=== PATIENT | male | born 1975 | race Caucasian/White ===

== ENCOUNTER → 2018-10-04 | Outpatient (CLI) | payer MEDICARE, OTHER ==
[2018-10-04 10:01] LABS: Basophils % (A) 1 %; Eosinophils # (A) 0.1 k/uL (0-0.7); Eosinophils % (A) 2 %; HCT 48.1 % (39.0-53.0); Lymphocytes # (A) 1.5 k/uL (1.0-4.8); Lymphocytes % (A) 26 %; MCH 29.9 pg (25.0-35.0); MCHC 33.2 g/dL (31.0-37.0); Monocytes # (A) 0.3 k/uL (0-1.0); Monocytes % (A) 6 %; Neutrophils # (A) 3.6 k/uL (1.3-7.7); Neutrophils % (A) 64 %; Platelet Count 277 k/uL (150-450); RBC 5.35 m/uL (4.30-5.90); RDW 14.5 % (11.5-15.5); WBC 5.7 k/uL (3.8-10.6)
[2018-10-04 17:34] LABS: Albumin 4.5 g/dL (3.80-4.90); Albumin/Globulin Ratio 1.96 (1.60-3.17); Anion Gap 7.3 mmol/L (4.00-12.00); Calcium 9.2 mg/dL (8.7-10.3); Carbon Dioxide 26.7 mmol/L (21.6-31.8); Globulin 2.3 g/dL (1.6-3.3); LDL Cholesterol,Calculated 118.4 mg/dL (0.0-131.0); Potassium 4.5 mmol/L (3.5-5.5); Total Bilirubin 0.7 mg/dL (0.3-1.2); Total Protein 6.8 g/dL (6.2-8.2); VLDL Calculation 21.6 mg/dL (5.00-40.00)
== END | disposition home or self-care (01) ==
LOC: LABWHC1 08:37 → EEVIPCON 08:37
PROVIDERS: ATTEND Internal Medicine
DX: E55.9 Vitamin D deficiency, unspecified (principal); F41.1 Generalized anxiety disorder; Z13.6 Encounter for screening for cardiovascular disorders
CPT/HCPCS: 36415; 80053; 80061; 84443; 85025

== ENCOUNTER 2019-05-09 21:34 | Emergency (ER) | payer MEDICARE, OTHER ==
--- NOTE | 2019-05-09 22:08 | XR ---
EXAMINATION TYPE: XR ribs LT w pa chest xray DATE OF EXAM: 05/09/2019 COMPARISON: NONE HISTORY: Left rib pain. Fall. TECHNIQUE: 5 views FINDINGS: Heart is normal. Lungs are clear of consolidation. There are no hilar masses. There is no p leural effusion or pneumothorax. The left ribs appear intact. I see no rib fracture. IMPRESSION: No active cardiopulmonary disease. Normal left ribs.
--- NOTE | 2019-05-09 22:53 | ED ---
Fall HPI - General Chief Complaint: Fall Stated Complaint: Fall Time Seen by Provider: 05/09/19 21:34 Source: patient, EMS Mode of arrival: EMS - History of Present Illness Initial Comments: This is a 43-year-old male who states he fell about 2 weeks going to have a left-sided chest wall pain since then. He denies any fevers chills nausea vomiting sweats cough or phlegm production after discussion with a friend sudhir he did call 911 and was brought in by embolus. No other complaints or any other injuries no other modifying factors. He states it was rather severe pain though he seems to be smiling distress MD Complaint: fall Review of Systems ROS Statement: Those systems with pertinent positive or pertinent negative responses have been documented in the HPI. ROS Other: All systems not noted in ROS Statement are negative. Past Medical History Past Medical History: No Reported History Past Surgical History: Tonsillectomy Additional Past Surgical History / Comment(s): ear sx as a child Past Psychological History: Anxiety Smoking Status: Never smoker Past Alcohol Use History: None Reported Past Drug Use History: None Reported General Exam - General Exam Comments Initial Comments: This is a well-developed well-nourished awake alert oriented 3 male Limitations: no limitations General appearance: alert, in no apparent distress Head exam: Present: atraumatic, normocephalic, normal inspection Eye exam: Present: normal appearance, PERRL, EOMI. Absent: scleral icterus, conjunctival injection, periorbital swelling ENT exam: Present: normal exam, mucous membranes moist Neck exam: Present: normal inspection. Absent: tenderness, meningismus, lymphadenopathy Respiratory exam: Present: normal lung sounds bilaterally, chest wall tenderness (Tennis palpation over left lateral anterior chest wall and over left costal chondral margin. No step-off or crepitation no rash no bruising seen). Absent: respiratory distress, wheezes, rales, rhonchi, stridor Cardiovascular Exam: Present: regular rate, normal rhythm, normal heart sounds. Absent: systolic murmur, diastolic murmur, rubs, gallop, clicks GI/Abdominal exam: Present: soft, normal bowel sounds. Absent: distended, tenderness, guarding, rebound, rigid Extremities exam: Present: normal inspection, full ROM, normal capillary refill. Absent: tenderness, pedal edema, joint swelling, calf tenderness Back exam: Present: normal inspection Neurological exam: Present: alert, oriented X3, CN II-XII intact Psychiatric exam: Present: normal affect, normal mood Skin exam: Present: warm, dry, intact, normal color. Absent: rash Course Vital Signs 05/09/19 21:35 Temperature 96.9 F L Pulse Rate 69 Respiratory 20 Rate Blood Pressure 110/73 O2 Sat by Pulse 100 Oximetry - Reevaluation(s) Reevaluation #1: 05/09/19 22:52 The electronic prescription function is not working at this time the patient was given a prescription for Motrin 800 mg #20 use every 6 hours when necessary with no refills Medical Decision Making - Medical Decision Making I did discuss findings with the patient he will be discharged the presentation is consistent with chest wall contusion/bruise ribs he will be placed on anti- inflammatory pain medication. - Radiology Data Radiology results: report reviewed, image reviewed Disposition Clinical Impression: Fall, Contusion of rib on left side, Contusion of left chest wall Disposition: HOME SELF-CARE Condition: Good Instructions (If sedation given, give patient instructions): Rib Contusion (ED), Contusion in Adults (ED) Is patient prescribed a controlled substance at d/c from ED?: No Referrals: Janak Mcgarry MD [Primary Care Provider] - 1-2 days
[2019-05-09 23:07] VITALS: BP 101/70; PULSE 65; RESP 18; TEMP 97.7
== END 2019-05-09 23:00 | disposition home or self-care (01) ==
LOC: EC 21:34
DX: S20.212A Contusion of left front wall of thorax, initial encounter (principal); W19.XXXA Unspecified fall, initial encounter
CPT/HCPCS: 99283